=== PATIENT | male | born 1970 | race Caucasian/White ===

== ENCOUNTER 2016-10-18 18:54 | Emergency (ER) | payer BC, OTHER ==
--- NOTE | 2016-10-18 19:25 | ER Document Report ---
ED Medical Screen (RME) - General Chief Complaint: Abdominal pain, hematuria Stated Complaint: BLOOD IN URINE,ABDOMINAL PAIN Time Seen by Provider: 10/18/16 19:23 Notes: Patient states he has had some left lower quadrant suprapubic pain for 2 days. He also had some brown colored urine. He states he did have a kidney stone last year on the right side and this feels somewhat similar but not exactly. He says he has had some nausea but no vomiting. No problem with stools. Still had some sweats. TRAVEL OUTSIDE OF THE [place] IN LAST 30 DAYS: No - Related Data Allergies/Adverse Reactions: No Known Allergies Allergy (Unverified 06/26/13 21:36) Past Medical History Renal/ Medical History: Reports: Hx Kidney Stones. Denies: Hx Peritoneal Dialysis - Immunizations Hx Diphtheria, Pertussis, Tetanus Vaccination: Yes - 06/27/13 Physical Exam - Vital signs Vitals: Temp Pulse Resp BP Pulse Ox 98.6 F 83 16 137/93 H 97 10/18/16 19:00 10/18/16 19:00 10/18/16 19:00 10/18/16 19:00 10/18/16 19:00 Course - Vital Signs Vital signs: Temp Pulse Resp BP Pulse Ox 98.6 F 83 16 137/93 H 97 10/18/16 19:00 10/18/16 19:00 10/18/16 19:00 10/18/16 19:00 10/18/16 19:00
[2016-10-18 20:15] LABS: ABSOLUTE BASOPHILS # (AUTO) 0.1 10^3/uL (0.0-0.2); ABSOLUTE EOSINOPHILS # (AUTO) 0.1 10^3/uL (0.0-0.6); ABSOLUTE LYMPHOCYTES (AUTO) 2.2 10^3/uL (0.5-4.7); ABSOLUTE MONOCYTES (AUTO) 0.8 10^3/uL (0.1-1.4); ABSOLUTE NEUT (AUTO) 5.2 10^3/uL (1.7-8.2); BASOPHILS % (AUTO) 1.3 % (0-2); EOSINOPHILS % (AUTO) 0.9 % (0-6); HEMATOCRIT 42.7 % (37.9-51.0); HEMOGLOBIN 14.8 g/dL (13.5-17.0); HGB HCT DIFFERENCE 1.7; LYMPHOCYTES % (AUTO) 26.3 % (13-45); MEAN CORPUSCULAR HEMOGLOBIN 31.1 pg (27.0-33.4); MEAN CORPUSCULAR HGB CONC 34.6 g/dL (32.0-36.0); MEAN CORPUSCULAR VOLUME 90 fl (80-97); MONOCYTES % (AUTO) 9.7 % (3-13); RED BLOOD COUNT 4.76 10^6/uL (4.35-5.55); RED CELL DISTRIBUTION WIDTH 12.9 % (11.5-14.0); SEGMENTED NEUTROPHILS % (AUTO) 61.8 % (42-78); WHITE BLOOD COUNT 8.4 10^3/uL (4.0-10.5)
--- NOTE | 2016-10-18 20:28 | ER Document Report ---
ED GI/ - General Chief Complaint: Abdominal pain, hematuria Stated Complaint: BLOOD IN URINE,ABDOMINAL PAIN Time Seen by Provider: 10/18/16 19:23 Notes: Patient is a 46-year-old male presents emergency department complaining of suprapubic pain. Patient states that the pain started yesterday in his right testicle that resolved when he had bilateral flank pain that has since resolved and then 2 days he has had suprapubic pain described as sharp stabbing pain. Patient states that he does have a history of kidney stones. Otherwise he denies any fever, chills, nausea, vomiting. Patient states that he is able to urinate but is less than normal. Otherwise denies any other symptoms. States his pain is tolerable. TRAVEL OUTSIDE OF THE [place] IN LAST 30 DAYS: No - Related Data Allergies/Adverse Reactions: No Known Allergies Allergy (Unverified 06/26/13 21:36) Past Medical History - Social History Smoking Status: Never Smoker Family History: Reviewed & Not Pertinent Renal/ Medical History: Reports: Hx Kidney Stones. Denies: Hx Peritoneal Dialysis - Immunizations Hx Diphtheria, Pertussis, Tetanus Vaccination: Yes - 06/27/13 Review of Systems - Review of Systems Constitutional: No symptoms reported Gastrointestinal: See HPI Genitourinary: See HPI -: Yes All other systems reviewed and negative Physical Exam - Vital signs Vitals: Temp Pulse Resp BP Pulse Ox 98.6 F 83 16 137/93 H 97 10/18/16 19:00 10/18/16 19:00 10/18/16 19:00 10/18/16 19:00 10/18/16 19:00 - Notes Notes: PHYSICAL EXAM GENERAL: Alert, interacts well. HEAD: Normocephalic, atraumatic. EYES: Pupils equal, round, and reactive to light. Extraocular movements intact. ENT: Oral mucosa moist, tongue midline. NECK: Full range of motion. Supple. Trachea midline. LUNGS: Clear to auscultation bilaterally, no wheezes, rales, or rhonchi. No respiratory distress. HEART: Regular rate and rhythm. No murmurs, gallops, or rubs. ABDOMEN: Soft, nondistended, mild tenderness in the suprapubic region otherwise nontender. No guarding, rebound, or rigidity.. Bowel sounds present in all 4 quadrants. EXTREMITIES: Moves all 4 extremities spontaneously. No edema, radial and dorsalis pedis pulses 2/4 bilaterally. No cyanosis. NEUROLOGICAL: Alert and oriented x4. Normal speech. PSYCH: Normal affect, normal mood. SKIN: Warm, dry, normal turgor. No rashes or lesions noted. Course - Re-evaluation Re-evalutation: 10/18/16 22:16 Presents with findings consistent with acute nephrolithiasis. Urinalysis does show hematuria. Laboratory otherwise unremarkable. Pain was able to be controlled here in the emergency department. Patient is tolerating oral intake. Clinical history is not consistent with an acute abdominal aneurysm or dissection, AR, or pulmonary embolus. Urinalysis does not show findings consistent with an infected stone. Vitals have remained within normal limits. Patient will be discharged with recommendations to follow-up with urology, pain medications, and return precautions. They are in agreement with this plan and verbalized indications return to emergency department. - Vital Signs Vital signs: Temp Pulse Resp BP Pulse Ox 98.6 F 83 16 137/93 H 97 10/18/16 19:00 10/18/16 19:00 10/18/16 19:00 10/18/16 19:00 10/18/16 19:00 - Laboratory Result Diagrams: 10/18/16 20:08 10/18/16 20:08 Laboratory results interpreted by me: 10/18/16 10/18/16 20:08 20:08 Calcium 10.4 H Total Protein 9.2 H Albumin 5.3 H Urine Blood LARGE H Discharge - Discharge Clinical Impression: Nephrolithiasis Condition: Good Disposition: HOME, SELF-CARE Additional Instructions: Your symptoms should improve over the course of the next one week. If you continue to have pain for greater than one week or your pain is not controlled with the pain medications that you have been sent home with you need to return to the emergency department. Please also return if you develop fever, persistent vomiting, or any other symptoms that are concerning to you. You should take ibuprofen 600 mg every 6 hours and use the Percocet as prescribed only for pain not controlled by ibuprofen. Your also been sent home with a medication called Flomax to help pass the stone. You've been given Zofran to assist with nausea. Please followup closely with your primary care provider. Prescriptions: Hydrocodone/Acetaminophen [[place] 5-325 Tablet] 1 - 2 tab PO ASDIR PRN #10 tab PRN Reason: Tamsulosin HCl [Flomax 0.4 mg Cap.sr] 0.4 mg PO DAILY #7 cap.sr.24h
[2016-10-18 20:32] LABS: ALANINE AMINOTRANSFERASE 69 U/L (21-72); ALBUMIN 5.3 g/dL (3.5-5.0); ALKALINE PHOSPHATASE 60 U/L (38-126); ANION GAP 15 (5-19); ASPARTATE AMINO TRANSFERASE 40 U/L (17-59); BILIRUBIN,DIRECT 0.3 mg/dL (0.0-0.4); BILIRUBIN,TOTAL 0.7 mg/dL (0.2-1.3); BLOOD UREA NITROGEN 17 mg/dL (7-20); CALCIUM 10.4 mg/dL (8.4-10.2); CARBON DIOXIDE 24 mmol/L (22-30); CHLORIDE 103 mmol/L (98-107); CREATININE RESULT 0.89 mg/dL (0.52-1.25); GLUCOSE 98 mg/dL (75-110); POTASSIUM 4.7 mmol/L (3.6-5.0); SODIUM 142.2 mmol/L (137-145); TOTAL PROTEIN 9.2 g/dL (6.3-8.2)
[2016-10-18] MEDS ORDERED: ONDANSETRON 4 MG TAB.RAPDIS PO ONE (20:33)
[2016-10-18] MEDS ORDERED: ACETAMINOPHEN 325 MG TABLET PO ONE (20:33)
[2016-10-18 21:13] LABS: APPEARANCE,URINE SLIGHTLY-CLOUDY; BILIRUBIN,URINE NEGATIVE (NEGATIVE); GLUCOSE, URINE NEGATIVE (NEGATIVE); KETONES,URINE NEGATIVE (NEGATIVE); LEUKOCYTE ESTERASE,URINE NEGATIVE (NEGATIVE); NITRITE,URINE NEGATIVE (NEGATIVE); PROTEIN,URINE NEGATIVE (NEGATIVE); URINE SPECIFIC GRAVITY 1.019; UROBILINOGEN,URINE NEGATIVE mg/dL (<2.0)
--- NOTE | 2016-10-18 21:27 | RADIOLOGY REPORT (SQ) ---
EXAM DESCRIPTION: CT ABD/PELVIS NO ORAL OR IV COMPLETED DATE/TIME: 10/18/2016 9:14 pm REASON FOR STUDY: left lq pain/hx stones COMPARISON: September 2010 TECHNIQUE: CT scan of the abdomen and pelvis performed without intravenous or oral contrast. Images reviewed with lung, soft tissue, and bone windows. Reconstructed coronal and sagittal MPR images revi ewed. All images stored on PACS. All CT scanners at this facility use dose modulation, iterative reconstruction, and/or weight based d osing when appropriate to reduce radiation dose to as low as reasonably achievable (ALARA). [facility]: Dose Right [facility]: CareDose [facility]: Dose Right [facility]: Teradose 4D [facility]: Smart StrikeAd RADIATION DOSE: Up-to-date CT equipment and radiation dose reduction techniques were employed. CTDIv ol: 14.8 mGy. DLP: 802 mGy-cm.mGy. LIMITATIONS: None. FINDINGS: LOWER CHEST: No significant findings. No nodules or infiltrates. NON-CONTRASTED LIVER, SPLEEN, ADRENALS: Evaluation limited by lack of IV contrast. No identified sign ificant masses. PANCREAS: No masses. No peripancreatic inflammatory changes. GALLBLADDER: No identified stones by CT criteria. No inflammatory changes to suggest cholecystitis. RIGHT KIDNEY AND URETER: No suspicious masses. Assessment limited by lack of IV contrast. A tiny ob structing calculus is identified at the level of the uterovesical junction. No renal calculi are dar ntified. There is hydronephrosis of the right kidney and dilatation of the right ureter to the leve l of the obstructing calculus. LEFT KIDNEY AND URETER: No suspicious masses. Assessment limited by lack of IV contrast. Tiny nonob structing renal calculus is identified. No hydronephrosis or hydroureter. AORTA AND RETROPERITONEUM: No aneurysm. No retroperitoneal masses or adenopathy. BOWEL AND PERITONEAL CAVITY: No obvious masses or inflammatory changes. No free fluid. APPENDIX: Normal. PELVIS, BLADDER, AND ABDOMINAL WALL:No abnormal masses. No free fluid. Bladder normal. BONES: No significant findings. OTHER: No other significant finding. IMPRESSION: Tiny obstructing calculus at the level of the uterovesical junction on the right. Tiny nonobstructing left renal calculus. Other findings as noted above TECHNICAL DOCUMENTATION: JOB ID: [id number] Quality ID # [id number]: Final reports with documentation of one or more dose reduction techniques (e.g., Au tomated exposure control, adjustment of the mA and/or kV according to patient size, use of iterative reconstruction technique) 2010 [employer]- All Rights Reserved
[2016-10-18] MEDS ORDERED: HYDROCODONE/ACETAMINOPHEN 5-325 MG 6 TAB/DSPK PO PRN (22:19)
[2016-10-18] MEDS ORDERED: ONDANSETRON ODT 4 MG TAB (6 TAB/DSPK) PO PRN (22:19)
[2016-10-18 22:52] VITALS: BP 132/90
== END 2016-10-18 22:45 | disposition home or self-care (01) ==
LOC: ER 18:54
DX: N13.2 Hydronephrosis with renal and ureteral calculous obstruction (principal); R31.9 Hematuria, unspecified; R10.30 Lower abdominal pain, unspecified
CPT/HCPCS: 99285; 36415; 85025; 80053; 81001; 74176; S0119